=== PATIENT | male | born 1985 | race Two or more races ===

== ENCOUNTER 2022-01-01 11:14 | Emergency (ER) | payer MEDICAID, OTHER ==
[~2022-01-01] VITALS: Ht 172.7 cm; Wt 90.7 kg
[2022-01-01 12:07] LABS: Basophils # (auto) 0.3 10 ^3/uL (0-0.2); Basophils % (auto) 2.4 % (0.0-2.0); Eosinophils # (auto) 0 10 ^3/uL (0-0.8); Eosinophils % (auto) 0.4 % (0.0-7.0); Hematocrit 43.6 % (41.0-53.0); Hemoglobin 15.3 g/dL (13.5-17.5); Lymphocytes # (auto) 1.9 10 ^3/uL (0.4-5.4); Lymphocytes % (auto) 16.1 % (10.0-50.0); Mean Corpuscular Hemoglobin 32.8 pg (28.0-32.0); Mean Corpuscular Hgb Conc. 35.2 g/dL (32.0-36.0); Mean Corpuscular Volume 93.2 fL (80.0-100.0); Monocytes # (auto) 0.7 10 ^3/uL (0-1.3); Monocytes % (auto) 6.1 % (0.0-12.0); Nucleated Red Blood Cells % 0.1 %; Red Blood Cells 4.68 10^6/uL (4.5-5.90); Red Cell Distribution Width 12.8 % (11.8-14.3)
[2022-01-01 12:15] LABS: Calcium 9.5 mg/dL (8.5-10.1); Potassium 4.2 mmol/L (3.5-5.1)
[2022-01-01] MEDS ORDERED: ONDANSETRON HCL 4 MG/2 ML VIAL IV ONE (12:15)
[2022-01-01] MEDS ORDERED: SODIUM CHLORIDE 0.9% 1,000 ML IVB ONE (12:15)
[2022-01-01] MEDS ORDERED: MORPHINE SULFATE 4 MG/ML SYR/VIAL IV ONE ×2 (12:15→15:15)
[2022-01-01 12:19] LABS: Bilirubin, Total 0.8 mg/dL (0.2-1.0); Total Protein 8.1 g/dL (6.4-8.2)
[2022-01-01 12:38] LABS: Urine WBC None Seen /hpf (0 - 3)
[2022-01-01 12:58] LABS: Urine Bacteria NONE SEEN /hpf (None Seen); Urine Blood 3+ /uL (Negative); Urine Specific Gravity 1.013 (1.001-1.035)
[2022-01-01] MEDS ORDERED: IOHEXOL 300 MG/ML 100ML BOTTLE IJ ONE (13:20)
[2022-01-01 13:34] LABS: Lactic Acid w/Reflex 2.1 mmol/L (0.4-2.0)
[2022-01-01] MEDS ORDERED: PIPERACILLIN-TAZO 4.5GM 100 ML IV ONE (14:00)
[2022-01-01] MEDS ORDERED: IBUP600T28 PO (15:43)
[2022-01-01 15:44] VITALS: BP 168/111
[2022-01-01] MEDS ORDERED: KETOROLAC TROMETH 30 MG/ML 1ML VIAL IV ONE (15:45)
== END 2022-01-01 18:31 | disposition home or self-care (01) ==
LOC: EDBD 11:14 → ER 11:14
DX: N20.2 Calculus of kidney with calculus of ureter (principal)
CPT/HCPCS: 36415; 74177; 80053; 81001; 83605; 85025; 96361; 96365; 96375; 96376; 99285; J1885; J2270; J2405; J2543; J7030; Q9967; 96366